=== PATIENT | male | born 1995 | race American Indian/Alaskan Native ===

== ENCOUNTER 2021-08-30 21:43 | Emergency (ER) | payer OTHER ==
[2021-08-30] MEDS ORDERED: IBUPROFEN 800 MG TAB PO STA (22:45)
[2021-08-30] MEDS ORDERED: TETANUS,DIPH,PERTUSS(ACELL) VACCINE 0.5 ML SYRINGE IM ONE (22:45)
[2021-08-30] MEDS ORDERED: FLUORESCEIN 1 MG STRIP OP ONE (22:45)
[2021-08-30] MEDS ORDERED: TETRACAINE 0.5% OPHTH SOLN 4ML OU PRN (22:45)
[2021-08-30] MEDS ORDERED: ACETAMINOPHEN 500 MG TAB PO STA (22:45)
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
[2021-08-31 02:18] VITALS: BP 138/78
== END 2021-08-31 02:17 | disposition home or self-care (01) ==
LOC: ED 21:43
DX: S05.12XA Contusion of eyeball and orbital tissues, left eye, initial encounter (principal); S60.921A Unspecified superficial injury of right hand, initial encounter; Y04.8XXA Assault by other bodily force, initial encounter; Y93.89 Activity, other specified; Y92.89 Other specified places as the place of occurrence of the external cause; Y99.8 Other external cause status; S05.02XA Injury of conjunctiva and corneal abrasion without foreign body, left eye, initial encounter
CPT/HCPCS: 70486; 90471; 90715; 99284